=== PATIENT | female | born 1955 | race African-American/Black ===

== ENCOUNTER 2017-05-15 17:21 | Emergency (ER) | payer BC, OTHER ==
[~2017-05-15] VITALS: Ht 160 cm; Wt 58.1 kg
[2017-05-15] MEDS ORDERED: IV NORMAL SALINE 1000ML BAG 1,000 ML IV ONE ×2 (18:30→18:45)
[2017-05-15] MEDS ORDERED: IBUPROFEN 800 MG TABLET. PO ONE (18:30)
[2017-05-15] MEDS ORDERED: ACETAMINOPHEN 500 MG TABLET PO ONE (18:30)
[2017-05-15 18:47] LABS: BILIRUBIN,URINE NEGATIVE (NEG); GLUCOSE,URINE NEGATIVE (NEG); NITRITE,URINE NEGATIVE (NEG); PH,URINE 5.5; PROTEIN,URINE NEGATIVE (NEG-TRACE); UROBILINOGEN,URINE 0.2 mg/dL (0.2 mg/dL)
[2017-05-15 18:55] LABS: BACTERIA,URINE 0 /HPF (0-FEW); RBC,URINE OCC /HPF (0-2); SQUAMOUS EPITHELIAL CELL,UR FEW /LPF
--- NOTE | 2017-05-15 19:22 | PHYS DOC ---
Past Medical History Past Medical History: Diabetes-Type II, High Cholesterol, Hypertension Past Surgical History: No Surgical History Alcohol Use: Rarely Drug Use: None Adult General Chief Complaint Chief Complaint: FEVER HPI HPI 61-year-old female with a history of hypertension and high cholesterol now presents to the emergency department complaining of fever. Patient states she said fever since last night. She has some mild nausea but no vomiting. Patient has a mild tachycardia on evaluation and reports that she does not think she's been drinking enough fluids to stay well hydrated. No chest pain or shortness of breath. Denies productive cough. No pleuritic pain. Patient denies focal abdominal pain. She has had chills and sweats intermittently. She states she is being frequently but does not have any discomfort with urination. Denies flank pain and has no skin rashes or lesion. Patient is not aware of any recent sick contacts. No headache or stiff neck Review of Systems Review of Systems Constitutional: Denies fever or chills [] Eyes: Denies change in visual acuity, redness, or eye pain [] HENT: Denies nasal congestion or sore throat [] Respiratory: Denies cough or shortness of breath [] Cardiovascular: No additional information not addressed in HPI [] GI: Denies abdominal pain, nausea, vomiting, bloody stools or diarrhea [] : Denies dysuria or hematuria [] Musculoskeletal: Denies back pain or joint pain [] Integument: Denies rash or skin lesions [] Neurologic: Denies headache, focal weakness or sensory changes [] Endocrine: Denies polyuria or polydipsia [] Current Medications Current Medications Current Medications Medications (Trade) Dose Ordered Sig/[facility] Start Time Stop Time Status Last Admin Dose Admin Acetaminophen (Tylenol) 1,000 mg 1X ONCE 05/15/17 18:30 05/15/17 18:31 DC 05/15/17 18:28 1,000 MG Ibuprofen (Motrin) 800 mg 1X ONCE 05/15/17 18:30 05/15/17 18:31 DC 05/15/17 18:29 800 MG Sodium Chloride 1,000 ml @ 0 mls/hr 1X ONCE 05/15/17 18:45 05/15/17 18:46 DC 05/15/17 18:32 0 MLS/HR Allergies Allergies Allergies Coded Allergies Type Severity Reaction Last Updated Verified amoxicillin Allergy Severe Anaphylaxis 05/15/17 Yes clavulanic acid Allergy Severe Anaphylaxis 05/15/17 Yes Physical Exam Physical Exam Well-appearing 61-year-old female alert communicative cooperative and appropriate with a positive clinical fever. Supple neck with no meningismus clear lungs regular rate and rhythm mild tachycardia benign abdomen no CVA tenderness normal extremities with no rash or skin lesion. Constitutional: Well developed, well nourished, no acute distress, non-toxic appearance. [] HENT: Normocephalic, atraumatic, bilateral external ears normal, oropharynx moist, no oral exudates, nose normal. [] Eyes: PERRLA, EOMI, conjunctiva normal, no discharge. [] Neck: Normal range of motion, no tenderness, supple, no stridor. [] Cardiovascular:Heart rate regular rhythm, no murmur [] Lungs & Thorax: Bilateral breath sounds clear to auscultation [] Abdomen: Bowel sounds normal, soft, no tenderness, no masses, no pulsatile masses. [] Skin: Warm, dry, no erythema, no rash. [] Back: No tenderness, no CVA tenderness. [] Extremities: No tenderness, no cyanosis, no clubbing, ROM intact, no edema. [] Neurologic: Alert and oriented X 3, normal motor function, normal sensory function, no focal deficits noted. [] Psychologic: Affect normal, judgement normal, mood normal. [] Current Patient Data Vital Signs Vital Signs Date Time Temp Pulse Resp B/P (MAP) Pulse Ox O2 Delivery O2 Flow Rate FiO2 05/15/17 19:38 101.0 101.0 05/15/17 17:44 112 22 129/79 (96) 97 Room Air Lab Values Laboratory Tests Test 05/15/17 17:32 Urine Collection Type Unknown Urine Color Yellow Urine Clarity Clear Urine pH 5.5 Urine Specific [place] 1.015 Urine Protein Negative mg/dL (NEG-TRACE) Urine Glucose (UA) Negative mg/dL (NEG) Urine Ketones (Stick) Negative mg/dL (NEG) Urine Blood Trace (NEG) Urine Nitrite Negative (NEG) Urine Bilirubin Negative (NEG) Urine Urobilinogen Dipstick 0.2 mg/dL (0.2 mg/dL) Urine Leukocyte Esterase Small (NEG) Urine RBC Occ /HPF (0-2) Urine WBC 1-4 /HPF (0-4) Urine Squamous Epithelial Cells Few /LPF Urine Bacteria 0 /HPF (0-FEW) Urine Mucus Mod /LPF EKG EKG [] Radiology/Procedures Radiology/Procedures [] Course & Med Decision Making Course & Med Decision Making Pertinent Labs and Imaging studies reviewed. (See chart for details) Signs and symptoms consistent with viral syndrome and well-appearing female with a positive clinical fever. No focal evidence of arterial infection. IV fluids initiated for mild tachycardia. Antipyretics initiated and urinalysis pending. If results are unremarkable when fevers clinically improved patient will be discharged. No further workup or treatment will be indicated patient agrees with outpatient follow-up. Strict return precautions will be given. [] Dragon Disclaimer Dragon Disclaimer This electronic medical record was generated, in whole or in part, using a voice recognition dictation system. Departure Departure Impression: Primary Impression: Fever Additional Impressions: Viral syndrome Dehydration Tachycardia Disposition: 01 HOME, SELF-CARE Referrals: ALBERTO ALFORD MD (PCP) Patient Instructions: Fever, Viral Syndrome Additional Instructions: It appears that you're fever today as the result of a viral syndrome. Rest and drink plenty of fluids. Take Tylenol every 4 hours and ibuprofen 600 mg every 6 hours as needed for fevers and aches and pains. Follow-up with your doctor tomorrow and return immediately for new severe or worsening symptoms Problem Qualifiers NISA LOTT MD May 15, 2017 19:22
[2017-05-15 20:30] VITALS: BP 97/51
== END 2017-05-15 20:44 | disposition home or self-care (01) ==
LOC: ER 17:21
DX: B34.9 Viral infection, unspecified (principal); E86.0 Dehydration; R00.0 Tachycardia, unspecified; R11.0 Nausea; E11.9 Type 2 diabetes mellitus without complications; I10 Essential (primary) hypertension; E78.00 Pure hypercholesterolemia, unspecified; Z88.1 Allergy status to other antibiotic agents; Z88.8 Allergy status to other drugs, medicaments and biological substances
CPT/HCPCS: 81001; 96360; 96361; 99285; J7030; 99284-25